=== PATIENT | female | born 1980 | race African-American/Black ===

== ENCOUNTER 2016-09-19 08:07 | Emergency (ER) | payer MEDICAID ==
[~2016-09-19] VITALS: Ht 170.2 cm; Wt 60.0 kg
[~2016-09-19 08:07] MED LIST: IBUP800T23 PO; METH750T2 PO
[2016-09-19 08:08] VITALS: BP 105/67; PULSE 84; RESP 16; TEMP 98.7; O2SAT 100
[2016-09-19] MEDS ORDERED: BENZ100 PO (08:33)
[2016-09-19] MEDS ORDERED: MOME17I EACH NARE (08:33)
[2016-09-19] MEDS ORDERED: IBUP800T23 PO (08:33)
--- NOTE | 2016-09-19 08:33 | PD ---
HPI Chief Complaint: Cold / Flu Symptoms Time Seen by Provider: 08:31 Travel History International Travel<30 days: No Contact w/Intl Traveler<30days: No Traveled to known affect area: No History of Present Illness HPI 36-year-old female presents emergency Department with complaint of cough and nasal congestion 2 days. Says when she coughs it causes pain in her head. Otherwise denies headache. Denies ear pain, sore throat. Denies chest pain, shortness of breath, abdominal pain, nausea, vomiting. Denies fever, chills. Denies body aches. Has been taking [id number]-[id number]-iopspez medications with some relief of symptoms. Has no other medical complaints. Allergies to Bactrim. No other modifying factors or associated signs and symptoms. PFSH Past Medical History Cancer: No Diabetes: No Diminished Hearing: No Glaucoma: No Hepatitis: No Hiatal Hernia: No Respiratory: Yes (PNEUMONIA) Immunizations Current: No Pneumonia: Yes Thyroid Disease: No LMP: 09/18/16 : 10 Para: 4 Miscarriage: 4 : 2 Ovarian Cysts: Yes Past Surgical History Abdominal Surgery: No Cardiac Surgery: No Ear Surgery: No Endocrine Surgery: No Eye Surgery: No Genitourinary Surgery: No Gynecologic Surgery: Yes (CERCLAGES X 2) Oral Surgery: No Thoracic Surgery: No Other Surgery: Yes (RISEN REMOVE AT AGE 11) Social History Alcohol Use: Yes Tobacco Use: Yes (1 BLACK AND MILDS PER DAY ) Substance Use: No (HX OF MARIJUANA) Allergies-Medications (Allergen,Severity, Reaction): Coded Allergies: Bactrim (Verified Allergy, Severe, Itching, 09/19/16) PT STATES "YEAST INFECTION." Reported Meds & Prescriptions Reported Meds & Active Scripts Active Nasonex Nasal [place] (Mometasone Furoate) 50 Mcg/Act Naspr 2 [place] EACH NARE DAILY PRN Ibuprofen 800 Mg Tab 800 Mg PO Q6HR PRN Tessalon Perles (Benzonatate) 100 Mg Cap 100 Mg PO TID PRN Review of Systems Except as stated in HPI: all other systems reviewed are Neg Physical Exam Narrative GENERAL: Well-nourished, well-developed patient, in no acute distress SKIN: Warm and dry. No rash. HEAD: Atraumatic. Normocephalic. EYES: Pupils equal and round at 3 mm with brisk reaction. No scleral icterus. No injection or drainage. PERRLA. ENT: Mucosa pink and moist. No erythema or exudates. No uvular edema. No uvular , palatal, or tonsillar deviation. Airway patent. EARS: Bilateral pinnae and external canals appear within normal limits. Bilateral tympanic membranes without erythema, dullness or perforation. NECK: Trachea midline. No lymphadenopathy. CARDIOVASCULAR: Regular rate and rhythm. No murmur appreciated. RESPIRATORY: No accessory muscle use. Clear to auscultation. Breath sounds equal bilaterally. GASTROINTESTINAL: Abdomen soft, non-tender, nondistended. Hepatic and splenic margins not palpable. Bowel sounds are active 4 quadrants. MUSCULOSKELETAL: No obvious deformities. No clubbing. No cyanosis. No edema. NEUROLOGICAL: Awake and alert. Oriented 3. No obvious cranial nerve deficits. Motor grossly within normal limits. Normal speech. Moves all extremities. 5/5 strength to all extremities. PSYCHIATRIC: Appropriate mood and affect; insight and judgment normal. Data Data Last Documented VS Vital Signs Date Time Temp Pulse Resp B/P Pulse Ox O2 Delivery O2 Flow Rate FiO2 09/19/16 08:32 Room Air 09/19/16 08:08 98.7 84 16 105/67 100 MDM Medical Decision Making Medical Screen Exam Complete: Yes Emergency Medical Condition: Yes Medical Record Reviewed: Yes Differential Diagnosis Viral illness, bronchitis, influenza, upper respiratory infection Narrative Course 36-year-old female physical exam consistent with viral illness. Physical exam is unremarkable. She has had cough and nasal congestion 2 days. She denies shortness of breath or chest tightness. Patient is afebrile nontoxic appearing. She denies fever, vomiting. Discussed viral illness and symptomatic management. Patient agrees with treatment plan. Ibuprofen, Tessalon Perles, Nasonex nasal spray prescribed for home. Patient verbalizes understanding and agreement with treatment plan. Patient is medically cleared and stable for discharge. Discussed reasons to return to the emergency department. Instructed patient to follow up with primary care provider. Patient agrees with treatment plan. The patients vital signs are stable and the patient is stable for outpatient follow-up and treatment. Patient discharged home, stable and in no acute distress. Diagnosis Primary Impression: Viral illness Referrals: Primary Care Physician Patient Instructions: Cold Symptoms (ED), General Instructions, Safe Use of Cough and Cold Medicines (ED) Departure Forms: Tests/Procedures, Work Release Enter return to work date: September 20, 2016 Additional Instructions: Antibiotics as prescribed and complete full course Ibuprofen or Tylenol as instructed and as needed for fever/pain [id number] cough and cold medications as directed and as needed for symptom management Get plenty of sleep/rest Drink plenty of fluids to prevent dehydration; popsicles and Gatorade Use an air humidifier/turn off ceiling fans Follow-up with primary care provider Return immediately to the emergency department with worsening of symptoms Med/Other Pt SpecificInfo: Prescription(s) given Scripts Mometasone Nasal [place] (Nasonex Nasal [place])50 Mcg/Act Naspr2 [place] EACH NARE DAILY PRN (NASAL CONGESTION) #1 BOTTLE Ref 0 Prov:Tracy Davalos 09/19/16 Ibuprofen 800 Mg [id number] Mg PO Q6HR PRN (PAIN) #30 TAB Ref 0 Prov:Tracy Davalos 09/19/16 Benzonatate (Tessalon Perles)100 Mg [id number] Mg PO TID PRN (COUGH) #20 CAP Ref 0 Prov:Tracy Davalos 09/19/16 Disposition: 01 DISCHARGE HOME Condition: Stable Tracy Davalos September 19, 2016 08:33
== END 2016-09-19 08:49 | disposition home or self-care (01) ==
LOC: NEPK 08:07
DX: B34.9 Viral infection, unspecified (principal); R09.81 Nasal congestion; Z72.0 Tobacco use
CPT/HCPCS: 99283